=== PATIENT | female | born 1985 | race Caucasian/White ===

== ENCOUNTER 2016-10-14 17:45 | Emergency (ER) | payer SELFPAY ==
[~2016-10-14] VITALS: Ht 170.2 cm; Wt 64.0 kg
[~2016-10-14 17:45] MED LIST: CELE20TA PO; LAMI25TA3 PO; VIST25CA PO
[2016-10-14 17:46] VITALS: BP 124/80; PULSE 99; RESP 16; TEMP 99.3; O2SAT 98
[2016-10-14] MEDS ORDERED: LAMO100 PO (17:54)
[2016-10-14] MEDS ORDERED: CELE10TA PO (17:54)
--- NOTE | 2016-10-14 18:43 | PD ---
HPI Chief Complaint: Cold / Flu Symptoms Time Seen by Provider: 18:20 Travel History International Travel<30 days: No Contact w/Intl Traveler<30days: No Traveled to known affect area: No History of Present Illness HPI 31-year-old female presents to the emergency room for evaluation of sore throat , nonproductive cough, congestion, and right ear pain for the past 2 days. Patient states some symptoms started 5 days ago but improved and then returned. Cough is nonproductive. Moderate nasal congestion. Throat hurts with swallowing. She has not taken anything for her symptoms. Denies fever, chills , nausea, and vomiting. Denies chronic medical conditions or daily medications. History Past Medical Histgory Tetanus Vaccination: < 5 Years LMP: 3 WEEKS Menopausal: No Hx Cancer: No Hx Chemotherapy: No Hx Radiation Therapy: No Past Surgical History Surgical History: No Previous Surgery Social History Alcohol Use: Yes (3 DAILY) Tobacco Use: No Allergies-Medications (Allergen,Severity, Reaction): Coded Allergies: Benadryl (Verified Allergy, Severe, Palpitations, 10/14/16) Reported Meds & Prescriptions Reported Meds & Active Scripts Active Reported Celexa (Citalopram Hydrobromide) 10 Mg Tab 10 Mg PO DAILY Lamictal (Lamotrigine) 100 Mg Tab 100 Mg PO DAILY Review of Systems Except as stated in HPI: all other systems reviewed are Neg Physical Exam Narrative GENERAL: Well-nourished, well-developed female in no acute distress. Afebrile. Ambulatory. SKIN: Warm and dry. HEAD: Normocephalic. EYES: No scleral icterus. No injection or drainage. EARS: Bilateral pinnae and external canals appear within normal limits. Bilateral tympanic membranes without erythema, dullness or perforation. ENT: Mucosa pink and moist. Mild erythema without exudates or edema. No uvular edema. No uvular, palatal, or tonsillar deviation. Airway patent. Nasal turbinates appear normal without nasal blood, purulent drainage or septal hematoma. NECK: Supple, trachea midline. No JVD or lymphadenopathy. CARDIOVASCULAR: Regular rate and rhythm without murmurs, gallops, or rubs. RESPIRATORY: Breath sounds equal bilaterally. No accessory muscle use. No crackles, rales, wheezes, or rhonchi. Data Data Last Documented VS Vital Signs Date Time Temp Pulse Resp B/P Pulse Ox O2 Delivery O2 Flow Rate FiO2 1/11/17 17:55 98 Room Air 10/14/16 17:46 99.3 99 16 124/80 MDM Medical Screen Exam Complete: Yes Emergency Medical Condition: No Differential Diagnosis Upper respiratory infection Narrative Course 31-year-old otherwise healthy female presents to the emergency room for evaluation of upper epigastric symptoms for the past 2 days. Patient is afebrile and well-appearing in the emergency room. Physical exam is unremarkable. No evidence of bacterial infection in the ears, nose, throat, or lungs. Patient was reassured and told to take [id number] medications. Told to follow up with a primary care physician and return for worsening symptoms. There are no urgent or emergent medical conditions. A medical screening exam was performed: At the time of evaluation the presenting medical condition was determined not to be of an emergent nature. The patient was given the option of receiving additional care, but declined. Patient was given options for additional community resources from which to obtain care. The Patient Has Been advised to seek medical attention for their presenting complaint. The patient has been advised to return to the ER at any time if an emergent condition develops. Primary Impression: Encounter for medical screening examination Disposition: 01 DISCHARGE HOME Condition: Stable Celia Bennett Oct 14, 2016 18:43
== END 2016-10-14 18:22 | disposition left against medical advice (07) ==
LOC: PHEFT 17:45
DX: R05 Cough (principal)
CPT/HCPCS: 99281

== ENCOUNTER 2017-09-27 22:07 | Emergency (ER) | payer OTHER ==
[~2017-09-27] VITALS: Ht 160 cm; Wt 55.0 kg
[~2017-09-27 22:07] MED LIST changes: +CELE10TA PO; -CELE20TA PO; -LAMI25TA3 PO; +LAMO100 PO; -VIST25CA PO
[2017-09-27] MEDS ORDERED: CELE20TA PO (22:43)
[2017-09-27] MEDS ORDERED: LAMO25TA PO (22:43)
[2017-09-27] MEDS ORDERED: VIST25CA PO (22:43)
[2017-09-27 22:47] VITALS: BP 109/63; PULSE 85; RESP 16; TEMP 98.5; O2SAT 97
--- NOTE | 2017-09-27 23:05 | PD ---
HPI Chief Complaint: Psychiatric Symptoms Time Seen by Provider: 22:55 Travel History International Travel<30 days: No Contact w/Intl Traveler<30days: No Traveled to known affect area: No History of Present Illness HPI This patient was examined in the presence of a female nurse. 32-year-old female presents under Doshi act initiated by the [employer]. According to the paperwork, "Jeanne became upset with family and cut herself multiple times using a shaving razor on the top of her hands. Jeanne advised her medication makes her feel like there is region of her chest. Jeanne says this occurs every time she takes the medication only when she takes it." The patient reports that she became intoxicated today and punched a mirror and also used a razor to superficially cut both of her hands. She is complaining of bilateral hand pain, burning, worse with palpation. Last tetanus vaccination unknown. She denies any suicidal or homicidal ideation. She has no other complaints at this time. PFSH Past Medical History Arthritis: No Asthma: No Blood Disorders: No Bipolar Disorder: Yes Anxiety: Yes Depression: Yes Heart Rhythm Problems: No Cancer: No Cerebral Palsy: No High Cholesterol: No Chemotherapy: No Chest Pain: No Congestive Heart Failure: No COPD: No Cerebrovascular Accident: No Diabetes: No Patient Takes Glucophage: No Diminished Hearing: No Endocrine: No Gastrointestinal Disorders: No GERD: No Glaucoma: No Headaches: No Hepatitis: No Hiatal Hernia: No Hypertension: No Immune Disorder: No Kidney Stones: No Psychiatric: Yes (PSA; Mood D/O) Immunizations Current: Yes Migraines: Yes Myocardial Infarction: No Radiation Therapy: No Renal Failure: No Seizures: No Sickle Cell Disease: No Sleep Apnea: No Thyroid Disease: No Ulcer: No Tetanus Vaccination: < 5 Years Influenza Vaccination: No PNEUMOCCOCAL Vaccine (Year): 2 ?: Not Menopausal: No : 0 Para: 0 Miscarriage: 0 : 0 Past Surgical History Abdominal Surgery: No AICD: No Cardiac Surgery: No Ear Surgery: No Endocrine Surgery: No Eye Surgery: No Genitourinary Surgery: No Gynecologic Surgery: No Joint Replacement: No Neurologic Surgery: No Oral Surgery: No Pacemaker: No Other Surgery: No Social History Alcohol Use: Yes (3 DAILY) Tobacco Use: No Substance Use: Yes (HX OF) Allergies-Medications (Allergen,Severity, Reaction): Coded Allergies: diphenhydramine (Unverified Allergy, Severe, Palpitations, 09/27/17) Reported Meds & Prescriptions Reported Meds & Active Scripts Active Reported Vistaril (Hydroxyzine Pamoate) 25 Mg Cap 25 Mg PO HS Lamotrigine 25 Mg Tab 50 Mg PO DAILY Celexa (Citalopram Hydrobromide) 20 Mg Tab 20 Mg PO DAILY Review of Systems Except as stated in HPI: all other systems reviewed are Neg Physical Exam Narrative GENERAL: Well-developed well-nourished female in no acute distress SKIN: Warm and dry. Superficial abrasions on the dorsal aspect of both hands. HEAD: Atraumatic. Normocephalic. EYES: Pupils equal and round. No scleral icterus. No injection or drainage. ENT: No nasal bleeding or discharge. Mucous membranes pink and moist. NECK: Trachea midline. No JVD. CARDIOVASCULAR: Regular rate and rhythm. No murmur appreciated. RESPIRATORY: No accessory muscle use. Clear to auscultation. Breath sounds equal bilaterally. GASTROINTESTINAL: Abdomen soft, non-tender, nondistended. Hepatic and splenic margins not palpable. MUSCULOSKELETAL: No obvious deformities. No clubbing. No cyanosis. No edema. NEUROLOGICAL: Awake and alert. No obvious cranial nerve deficits. Motor grossly within normal limits. Normal speech. PSYCHIATRIC: Depressed. Data Data Last Documented VS Vital Signs Date Time Temp Pulse Resp B/P (MAP) Pulse Ox O2 Delivery O2 Flow Rate FiO2 09/27/17 22:47 98.5 85 16 109/63 (78) 97 Room Air Orders Orders Complete Blood Count With Diff (09/27/17 22:38) Comprehensive Metabolic Panel (09/27/17 22:38) Ed Urine Pregnancytest Poc (09/27/17 22:38) Psych Screen (09/27/17 22:38) Drug Screen, Random Urine (09/27/17 22:38) Alcohol (Ethanol) (09/27/17 22:38) Hand, Complete ([id number]) (09/27/17 ) Hand, Complete (Hjn1pet) (09/27/17 ) Tetanus/Diphtheria Tox Adult (Tetanus/Di (09/27/17 23:15) Labs Laboratory Tests Test 09/27/17 23:06 09/27/17 23:20 White Blood Count 9.9 TH/MM3 Red Blood Count 4.53 MIL/MM3 Hemoglobin 14.5 GM/DL Hematocrit 41.5 % Mean Corpuscular Volume 91.5 FL Mean Corpuscular Hemoglobin 32.0 PG Mean Corpuscular Hemoglobin Concent 35.0 % Red Cell Distribution Width 12.5 % Platelet Count 345 TH/MM3 Mean Platelet Volume 7.1 FL Neutrophils (%) (Auto) 62.6 % Lymphocytes (%) (Auto) 26.6 % Monocytes (%) (Auto) 7.8 % Eosinophils (%) (Auto) 2.4 % Basophils (%) (Auto) 0.6 % Neutrophils # (Auto) 6.2 TH/MM3 Lymphocytes # (Auto) 2.6 TH/MM3 Monocytes # (Auto) 0.8 TH/MM3 Eosinophils # (Auto) 0.2 TH/MM3 Basophils # (Auto) 0.1 TH/MM3 CBC Comment DIFF FINAL Differential Comment Blood Urea Nitrogen 10 MG/DL Creatinine 0.72 MG/DL Random Glucose 91 MG/DL Total Protein 7.9 GM/DL Albumin 4.2 GM/DL Calcium Level 8.9 MG/DL Alkaline Phosphatase 60 U/L Aspartate Amino Transf (AST/SGOT) 15 U/L Alanine Aminotransferase (ALT/SGPT) 24 U/L Total Bilirubin 0.2 MG/DL Sodium Level 145 MEQ/L Potassium Level 3.7 MEQ/L Chloride Level 113 MEQ/L Carbon Dioxide Level 24.3 MEQ/L Anion Gap 8 MEQ/L Estimat Glomerular Filtration Rate 94 ML/MIN Ethyl Alcohol Level 226 MG/DL Urine Opiates Screen NEG Urine Barbiturates Screen NEG Urine Amphetamines Screen NEG Urine Benzodiazepines Screen NEG Urine Cocaine Screen NEG Urine Cannabinoids Screen NEG MDM Medical Decision Making Medical Screen Exam Complete: Yes Emergency Medical Condition: Yes Medical Record Reviewed: Yes Differential Diagnosis Abrasions, contusions, laceration, fracture Substance-induced mood disorder, adjustment reaction, acute psychosis, major depressive disorder Narrative Course 32-year-old female presents under Doshi act for psychiatric evaluation. Local wound care provided. X-rays of both hands been ordered. Tetanus status updated. Mental health screening discussed with the patient. Psychiatric screen ordered. +ETOH 226. Medically cleared psychiatric disposition. Diagnosis Primary Impression: Alcohol intoxication Neymar Funes Sep 27, 2017 23:05
[2017-09-27] MEDS ORDERED: TETANUS/DIPHTHERIA TOXOID ADULT 0.5 ML VIAL IM ONE (23:15)
[2017-09-27 23:22] LABS: AUTOMATED NEUTROPHIL # 6.2 TH/MM3 (1.8-7.7); BASOPHIL # 0.1 TH/MM3 (0-0.2); BASOPHIL % 0.6 % (0.0-2.0); EOSINOPHIL # 0.2 TH/MM3 (0-0.4); EOSINOPHIL % 2.4 % (0.0-4.0); HEMATOCRIT 41.5 % (35.0-46.0); HEMOGLOBIN 14.5 GM/DL (11.6-15.3); LYMPH % 26.6 % (9.0-44.0); LYMPHOCYTE # 2.6 TH/MM3 (1.0-4.8); MEAN CELL VOLUME 91.5 FL (80.0-100.0); MEAN PLATELET VOLUME 7.1 FL (7.0-11.0); MONO % 7.8 % (0.0-8.0); MONOCYTE # 0.8 TH/MM3 (0-0.9); NEUT % 62.6 % (16.0-70.0); PLATELET COUNT 345 TH/MM3 (150-450); RED BLOOD COUNT 4.53 MIL/MM3 (4.00-5.30); RED CELL DISTRIBUTION WIDTH 12.5 % (11.6-17.2); WHITE BLOOD COUNT 9.9 TH/MM3 (4.0-11.0)
--- NOTE | 2017-09-27 23:28 | RADRPT ---
EXAM DATE/TIME: 09/27/2017 23:13 [facility] COMPARISON: No previous studies available for comparison. INDICATIONS : Punched mirror. Cuts to hands. MEDICAL HISTORY : None. SURGICAL HISTORY : None. ENCOUNTER: Initial ACUITY: 1 day PAIN SCORE: 5/10 LOCATION: Right hand FINDINGS: No definite fractures, or dislocations are identified. No definite lytic or sclerotic lesion is seen . The joint spaces are well maintained. CONCLUSION: Unremarkable study. Jennie Nicolas MD on September 27, 2017 at 23:26 Board Certified Radiologist. This report was verified electronically.
--- NOTE | 2017-09-27 23:28 | RADRPT ---
EXAM DATE/TIME: 09/27/2017 23:12 [facility] COMPARISON: No previous studies available for comparison. INDICATIONS : Punched mirror cuts to hands. MEDICAL HISTORY : None. SURGICAL HISTORY : None. ENCOUNTER: Initial ACUITY: 1 day PAIN SCORE: 6/10 LOCATION: Left hand FINDINGS: No definite fractures, or dislocations are identified. No definite lytic or sclerotic lesion is seen . The joint spaces are well maintained. CONCLUSION: Unremarkable study. Jennie Nicolas MD on September 27, 2017 at 23:26 Board Certified Radiologist. This report was verified electronically.
[2017-09-27 23:29] LABS: ALBUMIN 4.2 GM/DL (3.4-5.0); ALT (GPT) 24 U/L (10-53); AST (GOT) 15 U/L (15-37); BICARBONATE 24.3 MEQ/L (21.0-32.0); BLOOD UREA NITROGEN 10 MG/DL (7-18); CALCIUM 8.9 MG/DL (8.5-10.1); CHLORIDE 113 MEQ/L (98-107); CREATININE 0.72 MG/DL (0.50-1.00); GLOMERULAR FILTRATION RATE 94 ML/MIN (>89); GLUCOSE,RANDOM 91 MG/DL (74-106); SODIUM (NA) 145 MEQ/L (136-145)
[2017-09-27 23:31] LABS: ALKALINE PHOSPHATASE 60 U/L (45-117); TOTAL BILIRUBIN ADULT 0.2 MG/DL (0.2-1.0); TOTAL PROTEIN 7.9 GM/DL (6.4-8.2)
== END 2017-09-28 05:02 ==
LOC: NEPD 22:07 → NEPJ 09-28 05:02
DX: F10.129 Alcohol abuse with intoxication, unspecified (principal); M79.642 Pain in left hand; M79.641 Pain in right hand; F31.9 Bipolar disorder, unspecified; F41.9 Anxiety disorder, unspecified; F39 Unspecified mood [affective] disorder; Z79.899 Other long term (current) drug therapy; Z23 Encounter for immunization; Z88.8 Allergy status to other drugs, medicaments and biological substances
CPT/HCPCS: 73130; 80053; 80307; 85025; 90471; 90714

== ENCOUNTER 2017-10-26 14:05 | Emergency (ER) | payer SELFPAY ==
[~2017-10-26] VITALS: Ht 167.6 cm; Wt 67.0 kg
[~2017-10-26 14:05] MED LIST changes: -CELE10TA PO; +CELE20TA PO; -LAMO100 PO; +LAMO25TA PO; +VIST25CA PO
[2017-10-26 14:29] VITALS: BP 155/91; PULSE 87; RESP 16; TEMP 98.8; O2SAT 97
[2017-10-26] MEDS ORDERED: LAMO100 PO (15:37)
[2017-10-26] MEDS ORDERED: BENZ100 PO (16:23)
[2017-10-26] MEDS ORDERED: AZIT250T3 PO (16:23)
--- NOTE | 2017-10-26 16:23 | PD ---
HPI Chief Complaint: Cold / Flu Symptoms Time Seen by Provider: 16:04 Travel History International Travel<30 days: No Contact w/Intl Traveler<30days: No Traveled to known affect area: No History of Present Illness HPI 32-year-old female here for productive cough 1 week. She reports colored phlegm. Subjective fevers. Symptoms severity moderate. Unrelieved by over-the -counter cough and cold medicine. PFSH Past Medical History Arthritis: No Asthma: No Blood Disorders: No Bipolar Disorder: Yes Anxiety: Yes Depression: Yes Heart Rhythm Problems: No Cancer: No Cerebral Palsy: No High Cholesterol: No Chemotherapy: No Chest Pain: No Congestive Heart Failure: No COPD: No Cerebrovascular Accident: No Diabetes: No Diminished Hearing: No Endocrine: No Gastrointestinal Disorders: No GERD: No Glaucoma: No Headaches: No Hepatitis: No Hiatal Hernia: No Hypertension: No Immune Disorder: No Kidney Stones: No Psychiatric: Yes (PSA; Mood D/O) Immunizations Current: Yes Migraines: Yes Myocardial Infarction: No Radiation Therapy: No Renal Failure: No Seizures: No Sickle Cell Disease: No Sleep Apnea: No Thyroid Disease: No Ulcer: No PNEUMOCCOCAL Vaccine (Year): 2 Menopausal: No : 0 Para: 0 Miscarriage: 0 : 0 Past Surgical History Abdominal Surgery: No AICD: No Cardiac Surgery: No Ear Surgery: No Endocrine Surgery: No Eye Surgery: No Genitourinary Surgery: No Gynecologic Surgery: No Joint Replacement: No Neurologic Surgery: No Oral Surgery: No Pacemaker: No Other Surgery: No Social History Alcohol Use: Yes (3 DAILY) Tobacco Use: No Substance Use: Yes Allergies-Medications (Allergen,Severity, Reaction): Coded Allergies: diphenhydramine (Unverified Allergy, Severe, Palpitations, 10/26/17) Reported Meds & Prescriptions Reported Meds & Active Scripts Active Reported Lamictal (Lamotrigine) 100 Mg Tab 125 Mg PO DAILY Celexa (Citalopram Hydrobromide) 20 Mg Tab 20 Mg PO DAILY Review of Systems Except as stated in HPI: all other systems reviewed are Neg General / Constitutional: Positive: Fever Eyes: No: Visual changes HENT: No: Headaches Cardiovascular: No: Chest Pain or Discomfort Respiratory: Positive: Cough Gastrointestinal: No: Abdominal Pain Genitourinary: No: Dysuria Skin: No Rash Physical Exam Narrative GENERAL: Alert and well-appearing 32-year-old female SKIN: Warm and dry. HEAD: Normocephalic. EYES: No injection or drainage. NECK: Supple, trachea midline. CARDIOVASCULAR: Regular rate and rhythm RESPIRATORY: Breath sounds equal bilaterally. No accessory muscle use. Rhonchorous cough GASTROINTESTINAL: Abdomen soft, non-tender, nondistended. MUSCULOSKELETAL: No cyanosis, or edema. BACK: Nontender without obvious deformity. No CVA tenderness. Data Data Last Documented VS Vital Signs Date Time Temp Pulse Resp B/P (MAP) Pulse Ox O2 Delivery O2 Flow Rate FiO2 10/26/17 14:29 98.8 87 16 155/91 (112) 97 MDM Medical Decision Making Medical Screen Exam Complete: Yes Emergency Medical Condition: Yes Differential Diagnosis Bronchitis, pneumonia, influenza Narrative Course 32-year-old female here with rhonchorous cough and reported colored sputum. This is been ongoing for over a week. Patient be treated with azithromycin. Diagnosis Primary Impression: Bronchitis Referrals: [facility] Departure Forms: Tests/Procedures, Work Release Enter return to work date: Oct 28, 2017 Scripts Benzonatate (Tessalon Perles) 100 Mg Cap 200 MG PO TID Y for COUGH, #14 CAP 0 Refills Prov: Rica Giron 10/26/17 Azithromycin (Azithromycin) 250 Mg Tab 250 MG PO DIRECTED for Infection, #6 TAB 0 Refills Take 2 tabs (500 mg) on day 1 then 1 tab daily x 4 days. Prov: Rica Giron 10/26/17 Disposition: 01 DISCHARGE HOME Condition: Stable Rica Giron Oct 26, 2017 16:23
== END 2017-10-26 16:36 | disposition home or self-care (01) ==
LOC: PHED 14:05 → PHEFT 16:36
DX: J40 Bronchitis, not specified as acute or chronic (principal); F31.9 Bipolar disorder, unspecified
CPT/HCPCS: 99284

== ENCOUNTER 2018-01-02 23:11 | Emergency (ER) | payer SELFPAY ==
[~2018-01-02] VITALS: Ht 167.6 cm; Wt 55.0 kg
[~2018-01-02 23:11] MED LIST changes: +AZIT250T3 PO; +BENZ100 PO; +LAMO100 PO; -LAMO25TA PO; -VIST25CA PO
[2018-01-02 23:48] VITALS: BP 91/55; PULSE 93; RESP 16; TEMP 98.5; O2SAT 96
[2018-01-03 00:15] LABS: ALBUMIN 4.2 GM/DL (3.4-5.0); ALT (GPT) 24 U/L (10-53); AST (GOT) 15 U/L (15-37); BICARBONATE 25.3 MEQ/L (21.0-32.0); BLOOD UREA NITROGEN 11 MG/DL (7-18); CALCIUM 9.1 MG/DL (8.5-10.1); CHLORIDE 112 MEQ/L (98-107); CREATININE 0.78 MG/DL (0.50-1.00); GLOMERULAR FILTRATION RATE 86 ML/MIN (>89); GLUCOSE,RANDOM 98 MG/DL (74-106); SODIUM (NA) 145 MEQ/L (136-145)
[2018-01-03 00:17] LABS: ALKALINE PHOSPHATASE 57 U/L (45-117); TOTAL BILIRUBIN ADULT 0.1 MG/DL (0.2-1.0); TOTAL PROTEIN 7.8 GM/DL (6.4-8.2)
[2018-01-03 00:19] LABS: ACETAMINOPHEN LESS THAN 2.0 MCG/ML (10.0-30.0)
[2018-01-03 00:22] LABS: AUTOMATED NEUTROPHIL # 5.7 TH/MM3 (1.8-7.7); BASOPHIL # 0.1 TH/MM3 (0-0.2); BASOPHIL % 0.7 % (0.0-2.0); EOSINOPHIL # 0.3 TH/MM3 (0-0.4); EOSINOPHIL % 2.5 % (0.0-4.0); HEMATOCRIT 41.5 % (35.0-46.0); HEMOGLOBIN 14.2 GM/DL (11.6-15.3); LYMPH % 34.1 % (9.0-44.0); LYMPHOCYTE # 3.5 TH/MM3 (1.0-4.8); MEAN CELL VOLUME 90.9 FL (80.0-100.0); MEAN CORPUSCULAR HEMOGLOBIN 31.1 PG (27.0-34.0); MEAN CORPUSCULAR HGB CONC 34.2 % (32.0-36.0); MEAN PLATELET VOLUME 7.1 FL (7.0-11.0); MONO % 7.7 % (0.0-8.0); MONOCYTE # 0.8 TH/MM3 (0-0.9); PLATELET COUNT 369 TH/MM3 (150-450); RED BLOOD COUNT 4.56 MIL/MM3 (4.00-5.30); RED CELL DISTRIBUTION WIDTH 13.2 % (11.6-17.2); WHITE BLOOD COUNT 10.3 TH/MM3 (4.0-11.0)
--- NOTE | 2018-01-03 03:55 | PD ---
HPI Chief Complaint: OD/ Ingestion Time Seen by Provider: 03:46 Travel History International Travel<30 days: No Contact w/Intl Traveler<30days: No Traveled to known affect area: No History of Present Illness HPI Is a 32-year-old woman who presents to the emergency department under a Doshi act for intentional overdose. She reports she was drinking last night and took 2 Xanax tablets. She reports that she thought that when she took them it would "knock me him I asked". States she was trying to online. States she does have a history of depression in the past. Moods been doing okay. Denies trying to intentionally hurt herself or kill herself last night. States she otherwise has been well. No other complaints. Feels safe at home. Willing to contract for safety. History Past Medical History Medical History: Denies Significant Hx Tetanus Vaccination: < 5 Years Influenza Vaccination: No PNEUMOCCOCAL Vaccine (Year): 2 Menopausal: No : 0 Para: 0 Past Surgical History Surgical History: No Previous Surgery Social History Alcohol Use: Yes (3 DAILY) Tobacco Use: No Allergies-Medications (Allergen,Severity, Reaction): Coded Allergies: diphenhydramine (Unverified Allergy, Severe, Palpitations, 01/03/18) Reported Meds & Prescriptions Reported Meds & Active Scripts Active Reported Celexa (Citalopram Hydrobromide) 20 Mg Tab 20 Mg PO DAILY Lamictal (Lamotrigine) 100 Mg Tab 125 Mg PO DAILY Review of Systems Except as stated in HPI: all other systems reviewed are Neg Physical Exam Narrative GENERAL: Well-appearing 32-year-old woman, little bit sleepy but no acute distress. SKIN: Focused skin assessment warm/dry. HEAD: Atraumatic. Normocephalic. EYES: Pupils equal and round. No scleral icterus. No injection or drainage. ENT: No nasal bleeding or discharge. Mucous membranes pink and moist. NECK: Trachea midline. No JVD. CARDIOVASCULAR: Regular rate and rhythm. No murmur appreciated. RESPIRATORY: No accessory muscle use. Clear to auscultation. Breath sounds equal bilaterally. GASTROINTESTINAL: Abdomen soft, non-tender, nondistended. Hepatic and splenic margins not palpable. MUSCULOSKELETAL: No obvious deformities. No clubbing. No cyanosis. No edema. NEUROLOGICAL: Awake and alert. No obvious cranial nerve deficits. Motor grossly within normal limits. Normal speech. PSYCHIATRIC: Mood little bit flat, denies SI. No psychotic symptoms. Capacity. Data Data Last Documented VS Vital Signs Date Time Temp Pulse Resp B/P (MAP) Pulse Ox O2 Delivery O2 Flow Rate FiO2 01/02/18 23:48 98.5 93 16 91/55 (67) 96 Orders Orders Complete Blood Count With Diff (01/02/18 23:43) Comprehensive Metabolic Panel (01/02/18 23:43) Ed Urine Pregnancytest Poc (01/02/18 23:43) Psych Screen (01/02/18 23:43) Drug Screen, Random Urine (01/02/18 23:43) Alcohol (Ethanol) (01/02/18 23:43) Salicylates (Aspirin) (01/02/18 23:43) Tylenol (Acetaminophen) (01/02/18 23:43) Labs Laboratory Tests Test 01/02/18 23:30 4 23:42 Urine Opiates Screen NEG Urine Barbiturates Screen NEG Urine Amphetamines Screen NEG Urine Benzodiazepines Screen NEG Urine Cocaine Screen NEG Urine Cannabinoids Screen NEG White Blood Count 10.3 TH/MM3 Red Blood Count 4.56 MIL/MM3 Hemoglobin 14.2 GM/DL Hematocrit 41.5 % Mean Corpuscular Volume 90.9 FL Mean Corpuscular Hemoglobin 31.1 PG Mean Corpuscular Hemoglobin Concent 34.2 % Red Cell Distribution Width 13.2 % Platelet Count 369 TH/MM3 Mean Platelet Volume 7.1 FL Neutrophils (%) (Auto) 55.0 % Lymphocytes (%) (Auto) 34.1 % Monocytes (%) (Auto) 7.7 % Eosinophils (%) (Auto) 2.5 % Basophils (%) (Auto) 0.7 % Neutrophils # (Auto) 5.7 TH/MM3 Lymphocytes # (Auto) 3.5 TH/MM3 Monocytes # (Auto) 0.8 TH/MM3 Eosinophils # (Auto) 0.3 TH/MM3 Basophils # (Auto) 0.1 TH/MM3 CBC Comment DIFF FINAL Differential Comment Blood Urea Nitrogen 11 MG/DL Creatinine 0.78 MG/DL Random Glucose 98 MG/DL Total Protein 7.8 GM/DL Albumin 4.2 GM/DL Calcium Level 9.1 MG/DL Alkaline Phosphatase 57 U/L Aspartate Amino Transf (AST/SGOT) 15 U/L Alanine Aminotransferase (ALT/SGPT) 24 U/L Total Bilirubin 0.1 MG/DL Sodium Level 145 MEQ/L Potassium Level 3.9 MEQ/L Chloride Level 112 MEQ/L Carbon Dioxide Level 25.3 MEQ/L Anion Gap 8 MEQ/L Estimat Glomerular Filtration Rate 86 ML/MIN Salicylates Level LESS THAN 1.7 MG/DL Acetaminophen Level LESS THAN 2.0 MCG/ML Ethyl Alcohol Level 226 MG/DL MDM Medical Decision Making Medical Screen Exam Complete: Yes Emergency Medical Condition: Yes Differential Diagnosis Adjustment disorder, intoxication, overdose, other Narrative Course Medical decision making 32-year-old woman presents emerged department stating to recommend avoid alcohol , outpatient follow-up Diagnosis Primary Impression: Alcohol abuse with alcohol-induced mood disorder Additional Impression: Alcohol intoxication [facility]errals: [facility] Additional Instructions: Avoid excessive alcohol use. Do not abuse prescription medications or take illicit drugs. Return to the emergency department worsening feelings of depression or suicidality. Follow-up with Aleksander Muñoz as discussed. Med/Other Pt SpecificInfo: No Change to Meds Disposition: 01 DISCHARGE HOME Condition: Stable Bhargav Martinez MD Jan 03, 2018 03:55
[2018-01-03 06:22] VITALS: BP 100/56; PULSE 89; RESP 18; O2SAT 96
[2018-01-03] MEDS ORDERED: ONDANSETRON ODT 4 MG TAB PO ONE (06:30)
[2018-01-03 08:23] VITALS: BP 107/66; PULSE 99; RESP 18; O2SAT 99
--- NOTE | 2018-01-03 08:41 | PD ---
Data Data Last Documented VS Vital Signs Date Time Temp Pulse Resp B/P (MAP) Pulse Ox O2 Delivery O2 Flow Rate FiO2 01/03/18 08:43 01/03/18 08:23 99 18 99 Room Air 01/02/18 23:48 98.5 Orders Orders Complete Blood Count With Diff (01/02/18 23:43) Comprehensive Metabolic Panel (01/02/18 23:43) Ed Urine Pregnancytest Poc (01/02/18 23:43) Drug Screen, Random Urine (01/02/18 23:43) Alcohol (Ethanol) (01/02/18 23:43) Salicylates (Aspirin) (01/02/18 23:43) Tylenol (Acetaminophen) (01/02/18 23:43) Ondansetron Odt (Zofran Odt) (01/03/18 06:30) Ed Discharge Order (01/03/18 08:41) Labs Laboratory Tests Test 01/02/18 23:30 4 23:42 Urine Opiates Screen NEG Urine Barbiturates Screen NEG Urine Amphetamines Screen NEG Urine Benzodiazepines Screen NEG Urine Cocaine Screen NEG Urine Cannabinoids Screen NEG White Blood Count 10.3 TH/MM3 Red Blood Count 4.56 MIL/MM3 Hemoglobin 14.2 GM/DL Hematocrit 41.5 % Mean Corpuscular Volume 90.9 FL Mean Corpuscular Hemoglobin 31.1 PG Mean Corpuscular Hemoglobin Concent 34.2 % Red Cell Distribution Width 13.2 % Platelet Count 369 TH/MM3 Mean Platelet Volume 7.1 FL Neutrophils (%) (Auto) 55.0 % Lymphocytes (%) (Auto) 34.1 % Monocytes (%) (Auto) 7.7 % Eosinophils (%) (Auto) 2.5 % Basophils (%) (Auto) 0.7 % Neutrophils # (Auto) 5.7 TH/MM3 Lymphocytes # (Auto) 3.5 TH/MM3 Monocytes # (Auto) 0.8 TH/MM3 Eosinophils # (Auto) 0.3 TH/MM3 Basophils # (Auto) 0.1 TH/MM3 CBC Comment DIFF FINAL Differential Comment Blood Urea Nitrogen 11 MG/DL Creatinine 0.78 MG/DL Random Glucose 98 MG/DL Total Protein 7.8 GM/DL Albumin 4.2 GM/DL Calcium Level 9.1 MG/DL Alkaline Phosphatase 57 U/L Aspartate Amino Transf (AST/SGOT) 15 U/L Alanine Aminotransferase (ALT/SGPT) 24 U/L Total Bilirubin 0.1 MG/DL Sodium Level 145 MEQ/L Potassium Level 3.9 MEQ/L Chloride Level 112 MEQ/L Carbon Dioxide Level 25.3 MEQ/L Anion Gap 8 MEQ/L Estimat Glomerular Filtration Rate 86 ML/MIN Salicylates Level LESS THAN 1.7 MG/DL Acetaminophen Level LESS THAN 2.0 MCG/ML Ethyl Alcohol Level 226 MG/DL [facility] Supervised Visit with EULOGIO: No Narrative Course Patient CARE assume from Dr. Martinez at 0700, is a 32-year-old female presented emergency department intoxicated, she was under Doshi act was lifted by Dr. Martinez , she attempted to ambulate in the emergency department but then threw up once complaining of some nausea, she was allowed to stay in the emergency department for some extra time, she reports nursing station where I saw her clinically sober ambulating, she had no additional complaints to me at that time, she requested to go home, she had no physical complaints warning further workup and is clinically sober to make her own decisions, she denied suicidal homicidal ideation to me. She is stable for discharge per Diagnosis Primary Impression: Alcohol abuse with alcohol-induced mood disorder Additional Impression: Alcohol intoxication Referrals: [facility] day Patient Instructions: General Instructions, Alcohol Intoxication (ED) Departure Forms: Tests/Procedures Additional Instruction: Avoid excessive alcohol use. Do not abuse prescription medications or take illicit drugs. Return to the emergency department worsening feelings of depression or suicidality. Follow-up with Aleksander Muñoz as discussed. Disposition: 01 DISCHARGE HOME Condition: Stable Jovi Chahal MD Jan 03, 2018 08:41
== END 2018-01-03 08:44 | disposition home or self-care (01) ==
LOC: NEDAMB 23:11 → NEPC 01-03 08:44
DX: F10.14 Alcohol abuse with alcohol-induced mood disorder (principal); F10.129 Alcohol abuse with intoxication, unspecified; Y90.7 Blood alcohol level of 200-239 mg/100 ml; F32.9 Major depressive disorder, single episode, unspecified
CPT/HCPCS: 80053; 80307; 84703; 85025; 99284